=== PATIENT | male | born 1970 | race Two or more races ===

== ENCOUNTER 2020-03-04 11:41 | Emergency (ER) | payer SELFPAY ==
[~2020-03-04] VITALS: Ht 172.7 cm; Wt 100.2 kg
[2020-03-04 12:14] LABS: BASOPHILS % (AUTO) 1 % (0-1); EOSINOPHILS % (AUTO) 0 % (1-7); LYMPHOCYTES % (AUTO) 32 % (22-44); MEAN CORPUSCULAR HEMOGLOBIN 28.2 pg (27.5-34.5); MEAN CORPUSCULAR HGB CONC 32.9 g/dL (33.2-36.2); MEAN PLATELET VOLUME 7.6 fL (7.4-10.4); MONOCYTES % (AUTO) 11 % (2-9); NEUTROPHILS % (AUTO) 56 % (42-75); PLATELET COUNT 182 x10^3/uL (130-400); RED BLOOD COUNT 5.45 x10^6/uL (4.38-5.82); RED CELL DISTRIBUTION WIDTH 14.1 % (9.4-14.8)
[2020-03-04 12:21] LABS: ALBUMIN 3.5 g/dL (3.4-5.0); ANION GAP 2 mmol/L (5-15); CALCIUM 8.7 mg/dL (8.5-10.1); CHLORIDE 104 mmol/L (98-107); MD NO
[2020-03-04 12:22] LABS: CREATININE 0.85 mg/dL (0.7-1.3)
--- NOTE | 2020-03-04 12:38 | NUR ---
QUILL STRIPPER: PT TO ROOM FROM [place] [facility]
--- NOTE | 2020-03-04 12:48 | NUR ---
PT C/O BODY ACHES AND CHILLS THAT STARTED A WEEK AGO. PT STATES HE STARTED TO FELL A LITTLE BETTER THIS MORNING BUT WANTED TO GET CHECKED OUT. PROVIDER BEDSIDE.
--- NOTE | 2020-03-04 12:49 | NUR ---
PT DENIES CHEST PAIN OR SOB. PT DENIES SORE THROAT, N/V, OR FEVER.
[2020-03-04] MEDS ORDERED: DEXAMETHASONE 4 MG TABLET ONE (12:55)
[2020-03-04] MEDS ORDERED: DEXAMETHASONE 4 MG TABLET PO ONE (13:00)
[2020-03-04 13:16] VITALS: BP 158/100
--- NOTE | 2020-03-04 13:26 | NUR ---
TASK RN NOTE: PT GIVEN DC INSTRUCTIONS AND SCRIPT, EDUCATED REGARDING DC RX. PT A&O, RESPS EVEN AND UNLABORED, NO COMPLAINT AT DC. PT GIVEN ISOLATION RECOMMENDATIONS, VERBALIZED UNDERSTANDING. AMBULATORY TO DC WITH STEADY GAIT.
== END 2020-03-04 13:27 | disposition home or self-care (01) ==
LOC: ED 12:36
DX: J18.9 Pneumonia, unspecified organism (principal); J06.9 Acute upper respiratory infection, unspecified; R06.02 Shortness of breath; R94.31 Abnormal electrocardiogram [ECG] [EKG]; E11.9 Type 2 diabetes mellitus without complications; Z20.828 Contact with and (suspected) exposure to other viral communicable diseases
CPT/HCPCS: 36415; 71045; 80048; 82040; 85025; 87635; 93005; 99285